=== PATIENT | female | born 1965 | race African-American/Black ===

== ENCOUNTER 2017-12-10 07:15 | Day surgery (SDC) | payer BC ==
[2017-12-10] MEDS ORDERED: NA CHLORIDE 0.9% 1,000 ML ONE (07:52)
[2017-12-10 08:11] LABS: Specific Gravity 1.015 (1.005-1.030)
[2017-12-10] MEDS ORDERED: LIDOCAINE 1% MPF 2 ML AMPULE ONE (09:13)
[2017-12-10] MEDS ORDERED: PROPOFOL 200 MG/20 ML VIAL IV ONE (09:13)
--- NOTE | 2017-12-10 09:56 | ENDO RPT ---
[address], [address] COLONOSCOPY PROCEDURE REPORT EXAM DATE: 12/10/2017 PATIENT NAME: Dorene Zimmerman MR #: [id number] BIRTHDATE: 1965 ATTENDING: Seth Foley Dr STATUS: outpatient SLIDE MAKER: Stella Hernandez RN and Jacqueline Monson INDICATIONS: The patient is a 52 yr old Female here for a colonoscopy due to colon cancer screening and family history of colon polyps - 3 paternal aunts 1 paternal 1st cousin PROCEDURE PERFORMED: Colonoscopy with biopsy - cold polypectomy MEDICATIONS: Per Anesthesia. ESTIMATED BLOOD LOSS: None CONSENT: The patient understands the risks and benefits of the procedure and understands that these risks include, but are not limited to: sedation, allergic reaction, infection, perforation and/or bleeding. Alternative means of evaluation and treatment include, among others: physical exam, x-rays, and/or surgical intervention. The patient elects to proceed with this endoscopic procedure. DESCRIPTION OF PROCEDURE: During intra-op preparation period all mechanical medical equipment was checked for proper function. Hand hygiene and appropriate measures for infection prevention was taken. Procedure, possible complications, alternatives including, but not limited to possibility of bleeding, perforation, tear, infection, sepsis, need for surgery, need for blood transfusion, were explained to the patient. After the risks, benefits and alternatives of the procedure were thoroughly explained, Informed consent was verified, confirmed and timeout was successfully executed by the treatment team. The patient was placed in the left lateral position. A digital rectal exam was performed and revealed no abnormalities of the rectum. After appropriate level of anesthesia, the scope was passed. The [id number] ([id number]) endoscope was introduced through the anus and advanced to the terminal ileum which was intubated for a short distance. The quality of the prep was good. The instrument was then slowly withdrawn as the colon was fully examined. Scope withdrawal time was 7 minutes. COLON FINDINGS: A sessile polyp measuring 2 mm in size was found in the rectum. A polypectomy was performed with cold forceps. Small internal hemorrhoids were found. Retroflexed views revealed small hemorrhoids. The scope was then completely withdrawn from the patient and the procedure terminated. ADVERSE EVENTS: There were no complications. IMPRESSIONS: 1. 2 mm sessile polyp in the rectum; polypectomy was performed with cold forceps 2. Small internal hemorrhoids 3. Intubation to terminal ileum RECOMMENDATIONS: 1. await biopsy results 2. avoid NSAIDS for 2 weeks RECALL: Return in 3 year(s) for Colonoscopy. Seth Foley Dr eSigned: Seth Foley Dr 12/10/2017 9:56 AM cc: CPT CODES: ICD9 CODES: 569.0 Anal and rectal polyp PATIENT NAME: Erasmo Dorene L. MR#: [id number]
== END 2017-12-10 10:12 | disposition home or self-care (01) ==
LOC: ENDO 07:15
PROVIDERS: ATTEND Internal Medicine Gastroenterology
PROC: 0DBP8ZX Excision of Rectum, Via Natural or Artificial Opening Endoscopic, Diagnostic (ICD-10-PCS; principal; 2017-12-10 08:00)
DX: Z12.11 Encounter for screening for malignant neoplasm of colon (principal); E11.9 Type 2 diabetes mellitus without complications; Z79.84 Long term (current) use of oral hypoglycemic drugs; M10.9 Gout, unspecified; I10 Essential (primary) hypertension; Z83.71 Family history of colonic polyps; R63.4 Abnormal weight loss; E66.9 Obesity, unspecified; D12.8 Benign neoplasm of rectum; K64.8 Other hemorrhoids
CPT/HCPCS: 81025; 82962; 88305; J2001; J7030